=== PATIENT | female | born 1970 | race Two or more races ===

== ENCOUNTER 2023-03-19 11:11 | Inpatient (IN) | payer OTHER ==
[~2023-03-19] VITALS: Ht 165.1 cm; Wt 68.0 kg
[2023-03-19 13:32] LABS: HEMATOCRIT 42.5 % (36.0-45.00); HEMOGLOBIN 14.5 g/dL (12.0-15.00); MEAN CELL VOLUME 85.5 fL (80.00-100.00); MEAN CORPUSCULAR HEMOGLOBIN 29.2 pg (27.00-32.0); MEAN CORPUSCULAR HGB CONC 34.2 g/dl (32.0-36.0); PLATELET COUNT 216 K/uL (150-450); RED BLOOD COUNT 4.96 M/uL (4.00-6.00); RED CELL DISTRIBUTION WIDTH 14.6 % (11.5-14.5)
[2023-03-19 14:08] LABS: URINE APPEARANCE Clear; URINE BILIRRUBIN Negative (NEGATIVE); URINE BLOOD Negative; URINE COLOR Yellow; URINE GLUCOSE Negative (NEGATIVE); URINE LEUKOCYTE Negative; URINE NITRATE Negative; URINE PROTEIN Negative (NEGATIVE); URINE UROBILINOGEN 0.2 E.U./dl
[2023-03-19 14:11] LABS: URINE BACTERIA 419.5 uL (0.0-1933); URINE EPITHELIAL CELLS 11.4 uL (0.0-38.8); URINE RBC 9.3 uL (0.0-20.8); URINE WBC 10.3 uL (0.0-23.2)
[2023-03-19 14:17] LABS: ALBUMIN 3.9 gm/dL (3.4-5.0); BILIRUBIN TOTAL 1.87 mg/dL (0.3-1.2); CALCIUM 9.7 mg/dL (8.5-10.1); CREATININE SERUM 0.96 mg/dL (0.55-1.02); GFR 60.34; GLOBULINA 4.1 G/DL (2.4-3.5); POTASSIUM 3.82 mEq/L (3.5-5.1)
[2023-03-20 08:10] LABS: HEMATOCRIT 35.5 % (36.0-45.00); HEMOGLOBIN 12.1 g/dL (12.0-15.00); MEAN CELL VOLUME 87.1 fL (80.00-100.00); MEAN CORPUSCULAR HEMOGLOBIN 29.7 pg (27.00-32.0); MEAN CORPUSCULAR HGB CONC 34.1 g/dl (32.0-36.0); PLATELET COUNT 186 K/uL (150-450); RED BLOOD COUNT 4.08 M/uL (4.00-6.00); RED CELL DISTRIBUTION WIDTH 14.1 % (11.5-14.5)
[2023-03-20 08:25] LABS: ALBUMIN 3.1 gm/dL (3.4-5.0); BILIRUBIN TOTAL 1.44 mg/dL (0.3-1.2); BILIRUBIN,CONJUGATED 0.23 mg/dL (0.0-0.2); BILIRUBIN,UNCONJUGATED 1.21 mg/dL (0.0-0.6); CALCIUM 8.4 mg/dL (8.5-10.1); CHOL HDL RATIO 4.1 (0-5.0); CREATININE SERUM 0.59 mg/dL (0.55-1.02); GFR 105.82; GLOBULINA 2.9 G/DL (2.4-3.5); POTASSIUM 4.16 mEq/L (3.5-5.1)
[2023-03-20 08:26] LABS: C-REACTIVE PROTEIN 7.71 MG/DL (0.00-0.29)
[2023-03-20 08:37] LABS: INR 1.02; PARTIAL THROMBOPLASTIN TIME 31.5 SECONDS (22.0-34.0); PROTHROMBIN TIME 10.7 SECONDS (9.0-11.5)
[2023-03-20 09:54] LABS: ERYTHROCYTE SEDIMENTATION RATE 27 mm/hr
[2023-03-20 15:40] LABS: PH,URINE 6.5 (5.0-8.0); URINE APPEARANCE Clear; URINE BILIRRUBIN Negative (NEGATIVE); URINE BLOOD Negative; URINE COLOR Yellow; URINE GLUCOSE Negative (NEGATIVE); URINE LEUKOCYTE Negative; URINE NITRATE Negative; URINE PROTEIN Negative (NEGATIVE); URINE UROBILINOGEN 0.2 E.U./dl
[2023-03-20 15:44] LABS: URINE BACTERIA 59.1 uL (0.0-1933); URINE EPITHELIAL CELLS 5.2 uL (0.0-38.8); URINE RBC 8.6 uL (0.0-20.8)
[2023-03-20 15:56] LABS: URINE WBC 1.2 uL (0.0-23.2)
[2023-03-21 10:53] LABS: ob POSITIVE (NEGATIVE)
[2023-03-22] MEDS ORDERED: GABAPENTIN300 M2 (08:53)
[2023-03-22] MEDS ORDERED: KETOROLAC TROME10 MG (08:54)
[2023-03-22] MEDS ORDERED: DALFAMPRIDINE E10 MG (08:54)
[2023-03-22] MEDS ORDERED: ZOLPIDEM TARTRA10 MG (08:54)
[2023-03-22] MEDS ORDERED: ROSUVASTATIN CA10 MG (08:54)
[2023-03-23 11:49] LABS: HEMATOCRIT 33.3 % (36.0-45.00); HEMOGLOBIN 11.5 g/dL (12.0-15.00); MEAN CELL VOLUME 85.9 fL (80.00-100.00); MEAN CORPUSCULAR HEMOGLOBIN 29.5 pg (27.00-32.0); MEAN CORPUSCULAR HGB CONC 34.4 g/dl (32.0-36.0); PLATELET COUNT 177 K/uL (150-450); RED BLOOD COUNT 3.88 M/uL (4.00-6.00)
[2023-03-23 12:55] LABS: BILIRUBIN TOTAL 0.8 mg/dL (0.3-1.2); CALCIUM 8.5 mg/dL (8.5-10.1); CREATININE SERUM 0.65 mg/dL (0.55-1.02); GFR 94.63; GLOBULINA 2.9 G/DL (2.4-3.5); POTASSIUM 3.21 mEq/L (3.5-5.1); TOTAL PROTEIN 5.9 gm/dL (6.4-8.2)
[2023-03-24] MEDS ORDERED: HYOSCYAMINE0.125 M1 SL (08:14)
[2023-03-24] MEDS ORDERED: LIPITOR20 MG PO (08:15)
[2023-03-24] MEDS ORDERED: ROSUVASTATIN CA10 MG PO (08:16)
[2023-03-24] MEDS ORDERED: PAIN RELIEVER500 M2 PO (08:16)
[2023-03-24] MEDS ORDERED: GABAPENTIN300 MG PO (08:16)
[2023-03-24] MEDS ORDERED: ZOLPIDEM TARTRA10 MG PO (08:17)
[2023-03-24] MEDS ORDERED: INTESTINEX680 M1 PO (08:17)
[2023-03-24] MEDS ORDERED: PREDNISONE10 MG PO (08:17)
[2023-03-24] MEDS ORDERED: AUGMENTIN XR 11 EACH PO (08:18)
== END 2023-03-24 13:09 | disposition home or self-care (01) | DRG 392 ==
LOC: ER 11:12 → MEDJ 21:54
PROVIDERS: General Practice; ADMIT Internal Medicine; ATTEND Internal Medicine
PROC: BW21YZZ Computerized Tomography (CT Scan) of Abdomen and Pelvis using Other Contrast (ICD-10-PCS; principal; 2023-03-19)
PROC: BW21YZZ Computerized Tomography (CT Scan) of Abdomen and Pelvis using Other Contrast (ICD-10-PCS; 2023-03-23)
PROC: BT4JZZZ Ultrasonography of Kidneys and Bladder (ICD-10-PCS; 2023-03-23)
PROC: 3E0F7GC Introduction of Other Therapeutic Substance into Respiratory Tract, Via Natural or Artificial Opening (ICD-10-PCS; 2023-03-23)
DX: K57.92 Diverticulitis of intestine, part unspecified, without perforation or abscess without bleeding (principal); G35 Multiple sclerosis; D72.828 Other elevated white blood cell count; J45.909 Unspecified asthma, uncomplicated

== ENCOUNTER 2023-06-16 06:52 | Day surgery (SDC) | payer OTHER ==
[~2023-06-16 06:52] MED LIST: AUGMENTIN XR 11 EACH PO; DALFAMPRIDINE E10 MG; GABAPENTIN300 M2; GABAPENTIN300 MG PO; HYOSCYAMINE0.125 M1 SL; INTESTINEX680 M1 PO; KETOROLAC TROME10 MG; LIPITOR20 MG PO; PAIN RELIEVER500 M2 PO; PREDNISONE10 MG PO; ROSUVASTATIN CA10 MG; ROSUVASTATIN CA10 MG PO; ZOLPIDEM TARTRA10 MG; ZOLPIDEM TARTRA10 MG PO
[2023-06-16] MEDS ORDERED: PENICILLIN G BENZATHINE LA 1.2 MMU/2 ML DISP.SYRIN IM ONE (09:15)
[2023-06-16] MEDS ORDERED: DIPHENHYDRAMINE HCL 50 MG/ML VIAL 1ML IV ONE (09:45)
[2023-06-16] MEDS ORDERED: MIDAZOLAM HCL 2 MG/2 ML VIAL IV ONE (09:45)
[2023-06-16] MEDS ORDERED: ONDANSETRON HCL 2 MG/ML VIAL IV ONE (09:45)
[2023-06-16] MEDS ORDERED: fentaNYL CITRATE 50 MCG/ML AMPUL IV PUSH ONE (09:45)
== END 2023-06-16 10:40 | disposition home or self-care (01) ==
LOC: AMB-ENDOS 06:52
PROVIDERS: ATTEND Colon & Rectal Surgery
DX: K57.32 Diverticulitis of large intestine without perforation or abscess without bleeding (principal); K57.30 Diverticulosis of large intestine without perforation or abscess without bleeding; K64.8 Other hemorrhoids